=== PATIENT | female | born 1940 | race Caucasian/White ===

== ENCOUNTER 2018-11-11 16:40 | Emergency (ER) | payer MEDICARE, OTHER ==
--- NOTE | 2018-11-11 17:57 | Emergency Department Record ---
History of Present Illness - General Chief complaint: Lower Extremity Pain Stated complaint: R KNEE PAIN GOING TO THE ANKLE Time Seen by Provider: 11/11/18 17:52 Source: Patient, RN notes reviewed Mode of Arrival: Ambulatory - History of Present Illness Initial comments: twisted her right leg 3 days ago and almost fell. pain is located by the fibular head by the knee Onset/Timin -: Days(s) Location: Right, Knee History of Same: No Radiation: Proximal Severity scale (1-10): 8 Quality: Aching Consistency: Constant Improves with: Nothing Worsens with: Nothing Associated Symptoms: Denies other symptoms - Related Data Home Medications Medication Instructions Recorded Confirmed Last Taken Dextroamphetamine/Amphetamine 10 mg PO QAM 11/11/18 11/11/18 11/11/18 [Adderall] Hydrocodone/Acetaminophen [[place] 1 tab PO BID PRN 11/11/18 11/11/18 Unknown 10mg/325mg] Montelukast Sodium [Singulair] 10 mg PO QHS 11/11/18 11/11/18 Unknown Pantoprazole Sodium [Protonix] 20 mg PO DAILY 11/11/18 11/11/18 Unknown Temazepam [Restoril] 15 mg PO QHS 11/11/18 11/11/18 Unknown Allergies Allergy/AdvReac Type Severity Reaction Status Date / Time aspirin Allergy DIFFICULTY Verified 11/11/18 17:43 BREATHING latex Allergy HIVES Verified 11/11/18 17:43 Travel Screening - Travel/Exposure Within Last 30 Days Have you traveled within the last 30 days?: No Review of Systems Reviewed: No additional complaints except as noted below Constitutional: Reports: As per HPI. Denies: Chills, Fever, Malaise, Night sweats, Weakness, Weight change Eyes: Reports: As per HPI. Denies: Eye discharge, Eye pain, Photophobia, Vision change ENT: Reports: As per HPI. Denies: Congestion, Dental pain, Ear pain, Epistaxis , Hearing loss, Throat pain Respiratory: Reports: As per HPI. Denies: Cough, Dyspnea, Hemoptysis, Stridor, Wheezes Cardiovascular: Reports: As per HPI. Denies: Arrhythmia, Chest pain, Dyspnea on exertion, Edema, Murmurs, Orthopnea, Palpitations, Paroxysmal nocturnal dyspnea, Rheumatic Fever, Syncope Endocrine: Reports: As per HPI. Denies: Fatigue, Heat or cold intolerance, Polydipsia, Polyuria Gastrointestinal: Reports: As per HPI. Denies: Abdominal pain, Constipation, Diarrhea, Hematemesis, Hematochezia, Melena, Nausea, Vomiting Genitourinary: Reports: As per HPI. Denies: Abnormal menses, Discharge, Dyspareunia, Dysuria, Frequency, Hematuria, Incontinence, Retention, Urgency Musculoskeletal: Reports: As per HPI. Denies: Arthralgia, Back pain, Gout, Joint swelling, Myalgia, Neck pain Skin: Reports: As per HPI. Denies: Bruising, Change in color, Change in hair/ nails, Lesions, Pruritus, Rash Neurological: Reports: As per HPI. Denies: Abnormal gait, Confusion, Headache, Numbness, Paresthesias, Seizure, Tingling, Tremors, Vertigo, Weakness Psychiatric: Reports: As per HPI. Denies: Anxiety, Auditory hallucinations, Depression, Homicidal thoughts, Suicidal thoughts, Visual hallucinations Hematological/Lymphatic: Reports: As per HPI. Denies: Anemia, Blood Clots, Easy bleeding, Easy bruising, Swollen glands Past Medical History - SOCIAL HISTORY Smoking Status: Never smoker Alcohol Use: None Drug Use: None - RESPIRATORY Hx Respiratory Disorders: No - CARDIOVASCULAR Hx Cardio Disorders: No - NEURO Hx Neuro Disorders: No - GI Hx GI Disorders: No - Hx Genitourinary Disorders: No - ENDOCRINE Hx Endocrine Disorders: No - MUSCULOSKELETAL Hx Musculoskeletal Disorders: Yes - PSYCH Hx Psych Problems: No - HEMATOLOGY/ONCOLOGY Hx Hematology/Oncology Disorders: No Family Medical History Any Significant Family History?: No Physical Exam - General General Appearance: Alert, Oriented x3, Cooperative, No acute distress - Head Head exam: Normal inspection - Eye Eye exam: Normal appearance, PERRL Pupils: Normal accommodation - ENT ENT exam: Normal exam, Mucous membranes moist, Normal external ear exam, Normal orophraynx, TM's normal bilaterally Ear exam: Normal external inspection. negative: External canal tenderness Nasal Exam: Normal inspection. negative: Discharge, Sinus tenderness Mouth exam: Normal external inspection, Tongue normal Teeth exam: Normal inspection. negative: Dental caries Throat exam: Normal inspection. negative: Tonsillar erythema, Tonsillar exudate - Neck Neck exam: Normal inspection, Full ROM. negative: Tenderness - Respiratory Respiratory exam: Normal lung sounds bilaterally. negative: Respiratory distress - Cardiovascular Cardiovascular Exam: Regular rate, Normal rhythm, Normal heart sounds - GI/Abdominal GI/Abdominal exam: Soft, Normal bowel sounds. negative: Tenderness - Rectal Rectal exam: Deferred - exam: Deferred - Extremities Extremities exam: Full ROM, Normal capillary refill, Tenderness (pain by the fibular head with some swelling ,no pain in the posterior calf, no medial joint pain) - Back Back exam: Reports: Normal inspection, Full ROM. Denies: Muscle spasm, Rash noted, Tenderness - Neurological Neurological exam: Alert, Normal gait, Oriented X3, Reflexes normal - Psychiatric Psychiatric exam: Normal affect, Normal mood - Skin Skin exam: Dry, Intact, Normal color, Warm Course Vital Signs 11/11/18 17:39 Temperature 98.0 F Pulse Rate 101 H Respiratory 20 Rate Blood Pressure 146/70 Pulse Ox 95 Medical Decision Making - Data Complexity MDM Data: X-Ray Ordered and/or Reviewed (looks neg for fractures where the patient hurts and medial plateau has degenerative changes and could be avulsion type injury but no pain there) Disposition Clinical Impression: Right knee sprain Qualifiers: Encounter type: initial encounter Involved ligament of knee: lateral collateral ligament Qualified Code(s): S83.421A - Sprain of lateral collateral ligament of right knee, initial encounter Disposition: Home, Self-Care Condition: (1) Good Instructions: Knee Sprain (ED) Additional Instructions: follow up with family Dr in 3 days tylenol for pain three times a day and put ice on the painful area Forms: Patient Portal Access Time of Disposition: 18:14 Quality - Quality Measures Quality Measures: N/A - Blood Pressure Screening Does Patient Have Any of the Following: No, Active Dx of HTN Blood Pressure Classification: Hypertensive Reading Systolic Measurement: 146 Diastolic Measurement: 70 Screening for High Blood Pressure: Patient Exclusion, Hx of HTN [[id number]]
[2018-11-11] MEDS ORDERED: ACETAMINOPHEN 500 MG TABLET PO ONE (18:37)
--- NOTE | 2018-11-14 06:26 | RADIOLOGY REPORT ---
EXAM: RIGHT KNEE, FOUR VIEWS HISTORY: FALL. TECHNIQUE: Four views of the right knee are provided without comparison examinations. FINDINGS: There is no radiographic evidence of a fracture or dislocation of the right knee. No significant soft tissue abnormalities are visualized. Moderate significant medial compartment joint space loss with marginal osteophyte formation and subchondral sclerosis is noted. Moderate patellofemoral joint space loss is noted. IMPRESSION: OSTEOARTHRITIC CHANGES OF THE RIGHT KNEE ARE NOTED WITHOUT RADIOGRAPHIC EVIDENCE OF AN ACUTE PROCESS INVOLVING THE RIGHT KNEE. JOB NUMBER: [id number] [facility]
--- NOTE | 2018-11-14 06:30 | RADIOLOGY REPORT ---
EXAM: RIGHT TIBIA AND FIBULA, TWO VIEWS HISTORY: PATIENT HAS A HISTORY OF FALL. TECHNIQUE: Two views of the right tibia and fibula are provided without comparison examinations. FINDINGS: There is no radiographic evidence of a fracture or dislocation of the right tibia and fibula. Vascular calcifications are noted within the right leg. There are also radiopaque densities identified within the lateral and medial subcutaneous region of the right anterior leg. This finding may represent soft tissue calcification and/or radiopaque foreign bodies. Clinical correlation is recommended. Osteoarthritic changes of the right knee and right ankle are noted. IMPRESSION: 1. NO RADIOGRAPHIC EVIDENCE OF A FRACTURE OR DISLOCATION OF THE RIGHT TIBIA AND FIBULA. 2. RADIOPAQUE DENSITIES WITHIN THE SOFT TISSUE OF THE RIGHT LEG MAY REPRESENT SOFT TISSUE CALCIFICATIONS AND/OR RADIOPAQUE DENSITIES FROM THE FALL. CLINICAL CORRELATION IS RECOMMENDED. JOB NUMBER: [id number] [facility]
== END 2018-11-11 18:55 | disposition home or self-care (01) ==
LOC: ER 16:40
DX: S83.421A Sprain of lateral collateral ligament of right knee, initial encounter (principal); M25.571 Pain in right ankle and joints of right foot; M25.561 Pain in right knee; X50.1XXA Overexertion from prolonged static or awkward postures, initial encounter
CPT/HCPCS: 99283